=== PATIENT | male | born 1965 | race Two or more races ===

== ENCOUNTER 2016-04-19 09:51 | Observation (INO) | payer MEDICAID ==
[2016-04-15 13:23] VITALS: BMI 27.9
[2016-04-19] VITALS (12 sets, daily range): BP systolic 118–146; RESP 16–20; TEMP 97.5–98.3; Ht 180.3 cm; Wt 89.1 kg
[~2016-04-19] VITALS: Ht 180.3 cm; Wt 89.1 kg
[2016-04-19] MEDS ORDERED: POVIDONE TOPICAL ONE (10:01)
[2016-04-19] MEDS ORDERED: GLYCOPYRROLATE 0.2 MG/ML VIAL IV ONE ×2 (10:01→10:40)
[2016-04-19] MEDS ORDERED: PHENYLEPHRINE 0.25% NARE EACH ONE (10:01)
[2016-04-19] MEDS ORDERED: NEOSTIGMINE 10 MG/10 ML VIAL IV ONE (10:01)
[2016-04-19] MEDS ORDERED: FENTANYL 100 MCG/2 ML AMP IV ONE (10:01)
[2016-04-19] MEDS ORDERED: ONDANSETRON 4 MG VIAL IV PUSH ONE (10:01)
[2016-04-19] MEDS ORDERED: [UNRECOGNIZED DRUG - OTHER] NARE EACH ONE (10:01)
[2016-04-19] MEDS ORDERED: LIDOCAINE/EPI 1% MDV 50 ML INFILTRATE ONE (10:01)
[2016-04-19] MEDS ORDERED: PROPOFOL 20 ML VIAL IV ONE (10:01)
[2016-04-19] MEDS ORDERED: ROCURONIUM 50 MG VIAL IV ONE (10:01)
[2016-04-19] MEDS ORDERED: LIDOCAINE 1% BUFFERED 1 ML SYR INTRADERM PRN (10:40)
[2016-04-19] MEDS ORDERED: MIDAZOLAM 2 MG/2 ML INJ IV ONE (10:40)
[2016-04-19] MEDS: LACT RINGERS 1,000 ML IV SCH ×2 (10:53→14:48)
[2016-04-19] MEDS ORDERED: ONDANSETRON 4 MG VIAL IV PRN (15:00)
[2016-04-19] MEDS ORDERED: MORPHINE 2 MG/ML SYR IV PRN (15:00)
[2016-04-19] MEDS ORDERED: OXYCODONE 5 MG TAB PO PRN (15:00)
[2016-04-19] MEDS ORDERED: MORPHINE 4 MG/ML SYR IV PRN ×2 (15:00→19:00)
[2016-04-19] MEDS ORDERED: MEPERIDINE 25 MG/ML IV PRN (15:00)
[2016-04-19] MEDS ORDERED: DILAUDID 1 MG/ML AMP IV PRN (15:00)
[2016-04-19] MEDS ORDERED: [UNRECOGNIZED DRUG - OTHER] INH ONE (17:52)
[2016-04-19] MEDS ORDERED: BISACODYL 10 MG SUPP RECTAL PRN (19:00)
[2016-04-19] MEDS ORDERED: BISACODYL EC 5 MG TAB PO PRN (19:00)
[2016-04-19] MEDS ORDERED: MAG HYDROX 30 ML UDC PO PRN (19:00)
[2016-04-19] MEDS ORDERED: ACETAMINOPHEN 325 MG TAB PO PRN (19:00)
[2016-04-19] MEDS ORDERED: ALU/MAG/SIM 30 ML UDC PO PRN (19:00)
[2016-04-19] MEDS ORDERED: SALINE FLUSH 10 ML FLUSH PRN ×2 (19:00→19:15)
[2016-04-19] MEDS ORDERED: SODIUM CHLORIDE 0.9% 1,000 ML IV SCH (19:00)
[2016-04-19] MEDS ORDERED: PROMETHAZINE 25 MG/ML VIAL IV PRN (19:00)
[2016-04-19] MEDS ORDERED: GLUCAGON 1 MG VIAL IM PRN (19:15)
[2016-04-19] MEDS ORDERED: DEXTROSE 50% SYRINGE 50 ML IV PRN (19:15)
[2016-04-19] MEDS: SALINE FLUSH 10 ML FLUSH SCH ×2 (20:00→23:00)
[2016-04-19] MEDS ORDERED: Atorvastatin 20 MG TAB PO SCH (21:00)
[2016-04-19] MEDS: MORPHINE 2 MG/ML SYR IV PRN (22:05)
[2016-04-20] MEDS: ACETAMINOPHEN 325 MG TAB PO PRN ×2 (00:42→15:06)
[2016-04-20] MEDS: LACT RINGERS 1,000 ML IV SCH ×2 (02:00→04:27)
[2016-04-20 04:00] VITALS: BP_SYST 114; RESP 18; TEMP 98.1
[2016-04-20] MEDS: MORPHINE 2 MG/ML SYR IV PRN (06:00)
[2016-04-20] MEDS ORDERED: SODIUM CHLORIDE 0.9% FLUSH BAG 500 ML IV SCH ×2 (06:00)
[2016-04-20] MEDS: SALINE FLUSH 10 ML FLUSH SCH ×2 (08:00)
[2016-04-20 08:19] VITALS: BP_SYST 117; RESP 18; TEMP 98.2
[2016-04-20] MEDS ORDERED: Aspirin 325 MG TAB PO SCH (09:00)
[2016-04-20] MEDS ORDERED: INSULIN GLARGINE HUM REC ANLOG 40 UNIT SUBQ SCH (09:00)
[2016-04-20 11:25] VITALS: BP_SYST 117; RESP 18; TEMP 98.2
[2016-04-20 11:27] VITALS: BP_SYST 124; RESP 17; TEMP 97.2
[2016-04-20] MEDS ORDERED: ROSUVASTATIN 5 MG TAB PO SCH (21:00)
[2016-04-21] MEDS ORDERED: INSULIN GLARGINE HUM REC ANLOG 45 UNIT SUBQ SCH (08:00)
== END 2016-04-20 11:00 | disposition home or self-care (01) ==
LOC: ENRESERVTM → ENRESERVDT → OSEC 09:51 → SDS 19:04 → ENPENDDIS 19:04 → EMR 19:20 → PCU 21:37
PROVIDERS: ADMIT Internal Medicine; ATTEND Internal Medicine
DX: J34.2 Deviated nasal septum (principal); E11.9 Type 2 diabetes mellitus without complications; E78.5 Hyperlipidemia, unspecified; J34.3 Hypertrophy of nasal turbinates; R41.82 Altered mental status, unspecified; H57.02 Anisocoria
CPT/HCPCS: 36415; 70450; 70551; 71020; 80048; 80061; 82947; 84484; 85025; 85610; 88305; 88311; 93005; 93306; 93880; 99220; 99239